=== PATIENT | female | born 1965 | race Caucasian/White ===

== ENCOUNTER 2021-04-18 11:43 | Emergency (ER) | payer MEDICAID, OTHER ==
[~2021-04-18] VITALS: Ht 162.6 cm; Wt 64.0 kg
[2021-04-19] MEDS ORDERED: CEFTRIAXONE 1 G PREMIX 50 ML IV ONE ×2 (00:15→03:15)
[2021-04-19 00:28] LABS: BASOPHILS % 0.5 % (0.0-2.0); EOSINOPHILS % 1.9 % (0.0-5.0); HEMOGLOBIN. 11.2 g/dL (12.0-16.0); LYMPHOCYTES % 36.6 % (20.0-50.0); MEAN CORPUSCULAR HEMOGLOBIN 29.2 pg (28.0-32.0); MEAN CORPUSCULAR VOLUME 88.7 fL (81.0-99.0); MEAN PLATELET VOLUME 7.4 fl (7.4-10.4); PLATELET 239 x1000/uL (130-400); RED BLOOD CELL COUNT 3.83 mill/uL (4.2-5.4); RED CELL DISTRIBUTION WIDTH 14.1 % (11.6-14.6)
[2021-04-19 00:34] LABS: CHLORIDE 108 mEq/L (98-107)
[2021-04-19 00:41] LABS: C REACTIVE PROTEIN QUANT 0.3 mg/L (0.0-3.0)
[2021-04-19] MEDS ORDERED: LIDOCAINE HCL 1% 20ML VIAL (Pyxis) INJ INFIL STA (02:12)
[2021-04-19] MEDS ORDERED: VANCOMYCIN 1 G PREMIX 200 ML IV SCH (03:15)
[2021-04-19 03:53] LABS: INR 0.9; PROTHROMBIN TIME 9.9 sec (9.6-11.0)
[2021-04-19] MEDS ORDERED: CLONIDINE 0.1MG TABLET PO PRN (10:45)
[2021-04-19] MEDS ORDERED: ACETAMINOPHEN 325MG TABLET PO PRN ×2 (10:45)
[2021-04-19] MEDS ORDERED: KETOROLAC 30MG/ML VIAL IV PRN (10:45)
[2021-04-19] MEDS ORDERED: ONDANSETRON HCL 4MG/2ML INJ IV PRN (10:45)
[2021-04-19] MEDS ORDERED: MAGNESIUM/ALUMINUM HYDROXIDE/SIMETHICONE 30ML UDC PO PRN (10:45)
[2021-04-19] MEDS ORDERED: SODIUM CHLORIDE 0.9% INJ 3ML FLUSH IVF SCH (14:00)
[2021-04-19 15:49] VITALS: BP 125/77
== END 2021-04-19 16:24 | disposition home or self-care (01) ==
LOC: ER 11:43 → CANBEDREQ 04-19 15:54 → ER 04-19 16:24
DX: S82.031A Displaced transverse fracture of right patella, initial encounter for closed fracture (principal); M25.551 Pain in right hip; I10 Essential (primary) hypertension; Z20.822 Contact with and (suspected) exposure to COVID-19; W01.0XXA Fall on same level from slipping, tripping and stumbling without subsequent striking against object, initial encounter; Y93.89 Activity, other specified; Y92.512 Supermarket, store or market as the place of occurrence of the external cause; E11.9 Type 2 diabetes mellitus without complications; K21.9 Gastro-esophageal reflux disease without esophagitis; J44.9 Chronic obstructive pulmonary disease, unspecified
CPT/HCPCS: 20610; 36415; 71045; 73502; 73552; 73562; 80053; 83605; 84145; 85025; 85610; 85651; 86140; 87426; 93971; 96365; 96366; 96368; 96375; 99285; J0696; J1885; J3370; J3490; Z7610